=== PATIENT | female | born 1955 | race Two or more races ===

== ENCOUNTER 2024-06-01 14:25 | Outpatient (CLI) | payer OTHER | END 2024-06-01 14:34 | disposition home or self-care (01) | LOC: TOM 14:25 | PROVIDERS: ATTEND Internal Medicine Gastroenterology | DX: Z12.11 Encounter for screening for malignant neoplasm of colon (principal) ==

== ENCOUNTER 2024-09-15 09:50 | Outpatient (CLI) | payer OTHER | END 2024-09-15 09:51 | disposition home or self-care (01) | LOC: NUCLEAR 09:50 | PROVIDERS: ATTEND Internal Medicine Gastroenterology | DX: K81.1 Chronic cholecystitis (principal) | CPT/HCPCS: 78227; A9537 ==